=== PATIENT | male | born 1995 | race African-American/Black ===

== ENCOUNTER 2021-04-01 08:53 | Emergency (ER) | payer SELFPAY ==
[~2021-04-01] VITALS: Ht 175.3 cm; Wt 80.0 kg
[2021-04-01] MEDS ORDERED: ACETAMINOPHEN 500MG TABLET PO ONE (09:15)
[2021-04-01] MEDS ORDERED: ONDANSETRON HCL 4MG TABLET PO ONE (10:45)
[2021-04-01] MEDS ORDERED: KETOROLAC 60MG/2ML VIAL IM ONE (10:45)
[2021-04-01] MEDS ORDERED: BUPRENORPHINE 8MG SL TABLET SL ONE (11:30)
[2021-04-01] MEDS ORDERED: MORPHINE SULFATE 10 MG/ML CPJ IM ONE (11:30)
[2021-04-01] MEDS ORDERED: BUPR1TAB33 SL (11:38)
[2021-04-01 13:05] VITALS: BP 119/73
== END 2021-04-01 13:25 | disposition home or self-care (01) ==
LOC: ER 08:53
DX: U07.1 COVID-19 (principal); B34.9 Viral infection, unspecified; J45.909 Unspecified asthma, uncomplicated
CPT/HCPCS: 96372; 99284; C9803; J1885; J2270; Q0162; U0003; U0005